=== PATIENT | male | born 2000 | race Caucasian/White ===

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

== ENCOUNTER 2021-01-06 16:20 | Emergency (ER) | payer OTHER ==
[~2021-01-06] VITALS: Ht 182.9 cm; Wt 86.2 kg
[2021-01-06] MEDS ORDERED: KETOROLAC TROMETHAMINE 30 MG/ML VIAL IM STA (16:50)
[2021-01-06] MEDS ORDERED: MUCINEX DM ER1 EACH PO (16:51)
[2021-01-06] MEDS ORDERED: KETOROLAC TROMETHAMINE 30 MG/ML VIAL ONE (17:17)
== END 2021-01-06 17:34 | disposition home or self-care (01) ==
LOC: FSED 16:36
DX: R50.9 Fever, unspecified (principal); R05 Cough; J06.9 Acute upper respiratory infection, unspecified
CPT/HCPCS: 71045; 99283; J1885